=== PATIENT | male | born 1995 | race Caucasian/White ===

== ENCOUNTER 2021-09-04 22:07 | Observation (INO) ==
[2021-09-05 01:10] LABS: Influenza A PCR Negative (Negative); Influenza B PCR Negative (Negative); Resp. Syncytial Virus PCR Negative (Negative)
[2021-09-05 01:24] LABS: SARS-CoV-2 by PCR (In House) Negative (Negative)
[2021-09-05] MEDS ORDERED: Levalbuterol Neb 1.25 MG/3 ML IH STA ×2 (02:52→03:19)
[2021-09-05] MEDS ORDERED: methylPREDNISolone 125 MG/2 ML VIAL IVP ONE (02:53)
[2021-09-05] MEDS ORDERED: 0.9 % Sodium Chloride 1,000 ML IV ONE (03:10)
[2021-09-05] MEDS ORDERED: Ondansetron 4 MG/2 ML VIAL IVP ONE (03:11)
[2021-09-05 03:48] LABS: Basophils # 0.1 K/mcL (0.0-0.2); Basophils % 0.3 %; Eosinophils # 0.1 K/mcL (0.0-0.6); Eosinophils % 0.4 %; Hematocrit 47.1 % (37.5-50.1); Hemoglobin 15.9 g/dL (12.9-16.9); Immature Granulocytes % 0.6 % (0-4); Lymphocytes # 1.5 K/mcL (0.6-4.6); Mean Corpuscular HGB Conc 33.8 g/dL (31.6-35.5); Mean Corpuscular Hemoglobin 29.2 pg (28.0-33.3); Mean Corpuscular Volume 86.6 fL (83.0-100.0); Mean Platelet Volume 10.2 fL (9.4-12.4); Monocytes % 5.7 %; Neutrophils # 15.4 K/mcL (1.6-8.9); Platelet Count 266 K/mcL (140-400); Red Blood Count 5.44 M/mcL (4.19-5.50); Red Cell Distribution Width 12.8 % (11.5-14.5); White Blood Count 18.2 K/mcL (4.3-11.1)
[2021-09-05 04:03] LABS: BUN/Creatinine Ratio 11 (6-26); Blood Urea Nitrogen 9 mg/dL (6-20); Calcium 10.4 mg/dL (8.6-10.3); Carbon Dioxide 24 mEq/L (23-29); Chloride 104 mEq/L (98-107); Glucose 112 mg/dL (70-105); Osmolality,Calculated 293 (280-300); Potassium 3.8 mEq/L (3.5-5.1); Sodium 142 mEq/L (136-145); eGFR For African Americans > 60 (> 60); eGFR For Non-African Americans > 60 (> 60)
[2021-09-05 04:05] LABS: Troponin I < 0.03 ng/mL (< 0.04)
[2021-09-05] MEDS ORDERED: Ipratropium/Albuterol Neb 3 ML IH ONE (05:19)
[2021-09-05] MEDS ORDERED: Albuterol Neb 7.5 MG, Sodium Chloride for inhalation 12 ML IH ONE (05:45)
[2021-09-05] MEDS ORDERED: Magnesium Sulfate 1 GM/102 ML PIGGYBACK IVPB ONE (05:54)
[2021-09-05] MEDS ORDERED: Naloxone 0.4 MG/ML INJ IVP PRN (08:00)
[2021-09-05] MEDS ORDERED: Ondansetron 4 MG/2 ML VIAL IVP PRN (08:00)
[2021-09-05] MEDS ORDERED: 0.9 % Sodium Chloride 1,000 ML IVC ONE (08:21)
[2021-09-05] MEDS: Ipratropium/Albuterol Neb 3 ML IH SCH ×3 (09:09→15:49)
[2021-09-05] MEDS: methylPREDNISolone 125 MG/2 ML VIAL IVP SCH ×2 (09:10→15:40)
[2021-09-05] MEDS: 0.9 % Sodium Chloride 1,000 ML IVC SCH (12:08)
[2021-09-05] MEDS: Amoxicillin/Clavulanate 500 MG TABLET PO SCH (15:40)
[2021-09-05] MEDS ORDERED: *HR* LORazepam 2 MG/ML VIAL IVP STA (16:32)
[2021-09-05] MEDS: Levalbuterol Neb 0.63 MG/3 ML IH SCH ×2 (20:06→23:50)
[2021-09-05] MEDS: Ipratropium Neb 0.5 MG NEBULIZER IH SCH ×2 (20:06→23:50)
[2021-09-06] MEDS: methylPREDNISolone 125 MG/2 ML VIAL IVP SCH ×3 (00:29→16:39)
[2021-09-06] MEDS: 0.9 % Sodium Chloride 1,000 ML IVC SCH ×2 (00:33→10:58)
[2021-09-06] MEDS: Levalbuterol Neb 0.63 MG/3 ML IH SCH ×4 (04:06→16:24)
[2021-09-06] MEDS: Ipratropium Neb 0.5 MG NEBULIZER IH SCH ×4 (04:06→16:24)
[2021-09-06 06:15] LABS: Basophils % 0.1 %; Hematocrit 42.4 % (37.5-50.1); Hemoglobin 14.1 g/dL (12.9-16.9); Immature Granulocytes % 0.8 % (0-4); Lymphocytes # 1.1 K/mcL (0.6-4.6); Mean Corpuscular HGB Conc 33.3 g/dL (31.6-35.5); Mean Corpuscular Hemoglobin 29.2 pg (28.0-33.3); Mean Corpuscular Volume 87.8 fL (83.0-100.0); Monocytes # 0.5 K/mcL (0.0-1.3); Monocytes % 2.9 %; Neutrophils # 16.1 K/mcL (1.6-8.9); Platelet Count 257 K/mcL (140-400); Red Blood Count 4.83 M/mcL (4.19-5.50); Red Cell Distribution Width 13.2 % (11.5-14.5); Segmented Neutrophils % 90.2 %; White Blood Count 17.8 K/mcL (4.3-11.1)
[2021-09-06 06:36] LABS: BUN/Creatinine Ratio 15 (6-26); Blood Urea Nitrogen 10 mg/dL (6-20); Calcium 9.4 mg/dL (8.6-10.3); Carbon Dioxide 23 mEq/L (23-29); Chloride 109 mEq/L (98-107); Glucose 127 mg/dL (70-105); Osmolality,Calculated 289 (280-300); Potassium 4.3 mEq/L (3.5-5.1); Sodium 139 mEq/L (136-145); eGFR For African Americans > 60 (> 60); eGFR For Non-African Americans > 60 (> 60)
[2021-09-06] MEDS: Amoxicillin/Clavulanate 500 MG TABLET PO SCH (08:27)
[2021-09-06 16:19] VITALS: BP 126/88; PULSE 114; TEMP 98; O2SAT 93
== END 2021-09-06 18:02 | disposition home or self-care (01) ==
LOC: EMEROOARM 22:07 → 4WAOSI 22:07 → 2ANU 22:07
PROVIDERS: ADMIT Family Medicine; ATTEND Family Medicine

== ENCOUNTER 2022-01-18 09:21 | Inpatient (IN) ==
[2022-01-18 09:52] LABS: Bilirubin,Urine Negative (Negative); Blood,Urine Negative (Negative); Clarity,Urine Clear (Clear); Color,Urine Light-Yellow (Yellow); Glucose,Urine (UA) Normal (Normal); Ketones,Urine Negative (Negative); Leukocyte Esterase,Urine Negative (Negative); Nitrite,Urine Negative (Negative); PH,Urine 7.5 pH Units (5.0-8.0); Protein,Urine Negative (Neg-Trace); Specific Gravity,Urine 1.019 (1.010-1.025); Urobilinogen,Urine Normal (Normal)
[2022-01-18 10:02] LABS: Basophils # 0.1 K/mcL (0.0-0.2); Basophils % 0.7 %; Eosinophils # 0.4 K/mcL (0.0-0.6); Eosinophils % 4.5 %; Hematocrit 42.5 % (37.5-50.1); Hemoglobin 14.2 g/dL (12.9-16.9); Immature Granulocytes % 0.4 % (0-4); Lymphocytes # 1.5 K/mcL (0.6-4.6); Lymphocytes % 14.7 %; Mean Corpuscular HGB Conc 33.4 g/dL (31.6-35.5); Mean Corpuscular Hemoglobin 28.9 pg (28.0-33.3); Mean Corpuscular Volume 86.6 fL (83.0-100.0); Mean Platelet Volume 10.2 fL (9.4-12.4); Monocytes # 0.5 K/mcL (0.0-1.3); Monocytes % 5.1 %; Neutrophils # 7.4 K/mcL (1.6-8.9); Platelet Count 203 K/mcL (140-400); Red Blood Count 4.91 M/mcL (4.19-5.50); Red Cell Distribution Width 12.8 % (11.5-14.5); Segmented Neutrophils % 74.6 %; White Blood Count 9.9 K/mcL (4.3-11.1)
[2022-01-18 10:13] LABS: Amphetamine Screen,Urine Negative ng/mL (Cutoff=1000); Barbiturate Screen,Urine Negative ng/mL (Cutoff=200); Benzodiazepines Screen,Urine Negative ng/mL (Cutoff=200); Cannabinoid Screen,Urine Positive ng/mL (Cutoff = 50); Cocaine Screen,Urine Negative ng/mL (Cutoff= 300); Opiate Screen,Urine Negative ng/mL (Cutoff=300); Phencyclidine Screen,Urine Negative ng/mL (Cutoff=25)
[2022-01-18 10:16] LABS: Acetaminophen < 10 mcg/mL (10-20); BUN/Creatinine Ratio 14 (6-26); Blood Urea Nitrogen 12 mg/dL (6-20); Calcium 9.1 mg/dL (8.6-10.3); Carbon Dioxide 28 mEq/L (23-29); Chloride 108 mEq/L (98-107); Chol/HDL Ratio 2.6 (0-4.9); Cholesterol 113 mg/dL (< 200); Ethanol < 10 mg/dL (Less than 10); Glucose 111 mg/dL (70-105); HDL Cholesterol 43 mg/dL (40-59); LDL Cholesterol,Calculated 59 mg/dL (< 100); Osmolality,Calculated 290 (280-300); Salicylate < 2.5 mg/dL (15.0-30.0); Sodium 140 mEq/L (136-145); Triglycerides 53 mg/dL (< 150); eGFR For African Americans > 60 (> 60); eGFR For Non-African Americans > 60 (> 60)
[2022-01-18 10:30] LABS: Estimated Average Glucose 103 mg/dl; Hemoglobin A1C 5.2 %
[2022-01-18] MEDS ORDERED: Mag Hydrox/Al Hydrox/Simeth 30 ML UDC PO PRN (11:15)
[2022-01-18] MEDS ORDERED: *HR* LORazepam 2 MG/ML VIAL IM PRN (11:15)
[2022-01-18] MEDS ORDERED: traZODone 50 MG TABLET PO PRN (11:15)
[2022-01-18] MEDS ORDERED: Nicotine 2 MG GUM BC PRN (11:15)
[2022-01-18] MEDS ORDERED: *HR* LORazepam 1 MG TABLET PO PRN (11:15)
[2022-01-18] MEDS ORDERED: MOM Conc 10 ML UD.LIQ PO PRN (11:15)
[2022-01-18] MEDS ORDERED: Acetaminophen 325 MG TABLET PO PRN (11:15)
[2022-01-18] MEDS ORDERED: haloperidoL 5 MG TABLET PO PRN (11:15)
[2022-01-18] MEDS ORDERED: hydrOXYzine pamoate 25 MG CAPSULE PO PRN (11:15)
[2022-01-18] MEDS ORDERED: Haloperidol Lactate 5 MG/ML VIAL IM PRN (11:15)
[2022-01-18 14:05] LABS: Influenza A PCR Negative (Negative); Influenza B PCR Negative (Negative); Resp. Syncytial Virus PCR Negative (Negative)
[2022-01-18 14:06] LABS: SARS-CoV-2 by PCR (In House) Negative (Negative)
[2022-01-19] MEDS ORDERED: BuPROPion XL (24 HR) 150 MG TABLET PO SCH (09:00)
[2022-01-20 09:37] VITALS: BP 134/95; PULSE 90; TEMP 97.9; O2SAT 93
== END 2022-01-20 14:58 | disposition home or self-care (01) | DRG 751 ==
LOC: EMEROOARM 09:21 → 1ANU 14:17
PROVIDERS: ADMIT Psychiatry & Neurology Psychiatry; ATTEND Psychiatry & Neurology Psychiatry